=== PATIENT | female | born 1995 | race Caucasian/White ===

== ENCOUNTER → 2023-12-07 | Outpatient (REF) | payer OTHER | LOC: M SFHCPLAZ 11:15 | PROVIDERS: ATTEND Family Medicine | DX: Z12.4 Encounter for screening for malignant neoplasm of cervix (principal) | CPT/HCPCS: 87624; G0123 ==

== ENCOUNTER → 2024-02-22 | Outpatient (REF) | payer OTHER | LOC: M SFHCPLAZ 12:38 | PROVIDERS: ATTEND Family Medicine | DX: D48.5 Neoplasm of uncertain behavior of skin (principal) ==